=== PATIENT | female | born 1960 | race Caucasian/White ===

== ENCOUNTER 2018-12-28 18:48 | Emergency (ER) | payer OTHER ==
[2018-12-28 18:54] VITALS: BP 96/62
--- NOTE | 2018-12-28 19:22 | ED ---
Respiratory - HPI Summary HPI Summary: 58 yr old with the complaint of mild nasal congestion, fatigue and dry cough. Coughing for about 6 days. Onset was last Thursday. 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 She states she has had pneumonia before. She states that all the coughing is making her chest hurt. - History of Current Complaint Chief Complaint: UCRespiratory Stated Complaint: COUGH Time Seen by Provider: 12/28/18 19:00 Pain Intensity: 3 - Allergy/Home Medications Allergies/Adverse Reactions: Allergies Allergy/AdvReac Type Severity Reaction Status Date / Time No Known Allergies Allergy Verified 12/28/18 18:54 Home Medications: Home Medications Sertraline* [Zoloft*] 12/28/18 [History] PMH/Surg Hx/FS Hx/Imm Hx Endocrine/Hematology History: Denies: Hx Diabetes, Hx Thyroid Disease Cardiovascular History: Denies: Hx Hypertension Respiratory History: Denies: Hx Asthma, Hx Chronic Obstructive Pulmonary Disease (COPD) GI History: Denies: Hx Ulcer - Cancer History Hx Chemotherapy: No Hx Radiation Therapy: No - Surgical History Surgery Procedure, Year, and Place: C SECTION. Tonsillectomy Infectious Disease History: No Infectious Disease History: Reports: Hx of Known/Suspected MRSA - abd wound Denies: Hx Clostridium Difficile, Hx Hepatitis, Hx Human Immunodeficiency Virus (HIV), Hx Shingles, Hx Tuberculosis, Traveled Outside the [place] in Last 30 Days - Social History Alcohol Use: None Substance Use Type: Reports: None Smoking Status (MU): Never Smoked Tobacco Review of Systems Positive: Fatigue Positive: Nasal Discharge Positive: Cough All Other Systems Reviewed And Are Negative: Yes Physical Exam Triage Information Reviewed: Yes Vital Signs On Initial Exam: Initial Vitals Temp Pulse Resp BP Pulse Ox 97.8 F 86 16 96/62 99 12/28/18 18:50 12/28/18 18:50 12/28/18 18:50 12/28/18 18:50 12/28/18 18:50 Vital Signs Reviewed: Yes Appearance: Positive: Well-Appearing, No Pain Distress Skin: Positive: Warm, Skin Color Reflects Adequate Perfusion Eyes: Positive: EOMI ENT: Positive: Nasal congestion Neck: Positive: Nontender Respiratory/Lung Sounds: Positive: Clear to Auscultation, Breath Sounds Present Cardiovascular: Positive: RRR. Negative: Murmur Abdomen Description: Negative: Distended Musculoskeletal: Positive: Strength/ROM Intact Neurological: Positive: Sensory/Motor Intact, Alert, Oriented to Person Place, Time, CN Intact II-III Psychiatric: Positive: Normal Diagnostics - Vital Signs Vital Signs Temp Pulse Resp BP Pulse Ox 12/28/18 18:50 97.8 F 86 16 96/62 99 - Laboratory Lab Statement: Any lab studies that have been ordered have been reviewed, and results considered in the medical decision making process. - Radiology chest pa lat Radiology Interpretation Completed By: ED Physician - NAD Disposition - Course Course Of Treatment: 58 yr old with cough, and cold symptoms. Chest xray neg per my read. Final read pending. - Diagnoses Provider Diagnoses: Upper respiratory infection Discharge - Sign-Out/Discharge Documenting (check all that apply): Patient Departure All imaging exams completed and their final reports reviewed: No - Discharge Plan Condition: Good Disposition: HOME Prescriptions: Benzonatate CAP* [Tessalon 100 MG CAP*] 100 mg PO TID #14 cap Patient Education Materials: Upper Respiratory Infection (ED) Referrals: Erma Rodriguez MD [Primary Care Provider] - 2 Days - Billing Disposition and Condition Condition: GOOD Disposition: Home
[2018-12-28 19:30] LABS: Influenza A Molecular NEGATIVE (Negative); Influenza B Molecular NEGATIVE (Negative)
--- NOTE | 2018-12-29 08:32 | ED ---
Progress - Progress Note Progress Note: PLEASE CALL PT AND INFORM OF RADIOLOGIST READ OF RML PNA AND TO GARDE MANGER THE ANTIBITIC CEFTIN 500 BID X 7 DAYS FROM THE PHARMACY Course/Dx - Course Course Of Treatment: 58 yr old with cough, and cold symptoms. Chest xray neg per my read. Final read pending. - Diagnoses Provider Diagnoses: Upper respiratory infection Discharge - Sign-Out/Discharge Documenting (check all that apply): Post-Discharge Follow Up All imaging exams completed and their final reports reviewed: No - Discharge Plan Condition: Good Disposition: HOME Prescriptions: Benzonatate CAP* [Tessalon 100 MG CAP*] 100 mg PO TID #14 cap Patient Education Materials: Upper Respiratory Infection (ED) Referrals: Erma Rodriguez MD [Primary Care Provider] - 2 Days - Billing Disposition and Condition Condition: GOOD Disposition: Home
== END 2018-12-28 19:45 | disposition home or self-care (01) ==
LOC: UCEAST 18:48
DX: J06.9 Acute upper respiratory infection, unspecified (principal)
CPT/HCPCS: 71046; 99212; G0463